=== PATIENT | male | born 1995 | race Two or more races ===

== ENCOUNTER 2017-04-18 09:26 | Emergency (ER) | payer MEDICAID ==
[~2017-04-18] VITALS: Ht 167.6 cm; Wt 54.4 kg
[2017-04-18 09:36] VITALS: BP 112/78
== END 2017-04-18 12:37 | disposition left against medical advice (07) ==
LOC: ER 09:26
DX: S41.112A Laceration without foreign body of left upper arm, initial encounter (principal); X99.8XXA Assault by other sharp object, initial encounter; Y93.89 Activity, other specified; Y99.8 Other external cause status; Y92.89 Other specified places as the place of occurrence of the external cause; Z53.21 Procedure and treatment not carried out due to patient leaving prior to being seen by health care provider

== ENCOUNTER 2017-04-18 14:43 | Emergency (ER) | payer MEDICAID ==
[~2017-04-18] VITALS: Ht 167.6 cm; Wt 54.4 kg
[2017-04-18 16:49] VITALS: BP 117/76
[2017-04-18] MEDS ORDERED: TETANUS-DIPTH-ACEL PERTUSSIS 0.5ML SYRG IM ONE (17:00)
== END 2017-04-18 17:23 | disposition home or self-care (01) ==
LOC: ER 15:24
DX: S41.119A Laceration without foreign body of unspecified upper arm, initial encounter (principal); F12.10 Cannabis abuse, uncomplicated; Z23 Encounter for immunization; W26.0XXA Contact with knife, initial encounter; Y93.89 Activity, other specified; Y99.8 Other external cause status; Y92.89 Other specified places as the place of occurrence of the external cause
CPT/HCPCS: 90471; 90715